=== PATIENT | male | born 1950 | race Caucasian/White ===

== ENCOUNTER 2021-12-06 16:11 | Inpatient (IN) ==
[2021-12-07] MEDS ORDERED: Dextrose Gel 15 GM/37.5 ML TUBE PO PRN ×2 (12:21)
[2021-12-07] MEDS ORDERED: *HR* Dextrose 50 % in Water (Syg) 50 ML SYRINGE IVP PRN (12:21)
[2021-12-07] MEDS ORDERED: D5% in Water 1,000 ML IVC PRN (12:21)
[2021-12-07] MEDS: cloNIDine HCL 0.1 MG TABLET PO SCH ×2 (15:23→20:50)
[2021-12-07] MEDS: Insulin LISPRO 300 UNITS/3 ML VIAL SUBQ SCH ×2 (16:52→20:57)
[2021-12-07] MEDS: carvediloL 25 MG TABLET PO SCH (16:53)
[2021-12-07] MEDS: ESOMEPRAZOLE 40 MG PO SCH (16:54)
[2021-12-07] MEDS: clonazePAM 0.5 MG TABLET PO SCH (20:49)
[2021-12-07] MEDS: lisinopriL 20 MG TABLET PO SCH (20:50)
[2021-12-07] MEDS: Insulin DETEMIR 100 UNIT/ML X5UNITS SUBQ SCH (20:53)
[2021-12-07] MEDS ORDERED: rOPINIRole 1 MG TABLET PO SCH (21:46)
[2021-12-08] MEDS: *HR* Enoxaparin 40 MG/0.4 ML SYRINGE SQ SCH (06:13)
[2021-12-08] MEDS: ESOMEPRAZOLE 40 MG PO SCH (07:49)
[2021-12-08] MEDS: Insulin LISPRO 300 UNITS/3 ML VIAL SUBQ SCH ×4 (07:49→19:44)
[2021-12-08] MEDS: cloNIDine HCL 0.1 MG TABLET PO SCH ×3 (07:50→19:47)
[2021-12-08] MEDS: clonazePAM 0.5 MG TABLET PO SCH ×2 (07:50→19:47)
[2021-12-08] MEDS: lisinopriL 20 MG TABLET PO SCH ×2 (07:50→19:47)
[2021-12-08] MEDS: carvediloL 25 MG TABLET PO SCH ×2 (07:50→16:02)
[2021-12-08 08:17] LABS: Basophils % 0.5 %; Eosinophils # 0.1 K/mcL (0.0-0.6); Eosinophils % 0.8 %; Hematocrit 43.1 % (37.5-50.1); Hemoglobin 14.2 g/dL (12.9-16.9); Immature Granulocytes % 0.9 % (0-4); Lymphocytes # 1.6 K/mcL (0.6-4.6); Lymphocytes % 19.9 %; Mean Corpuscular HGB Conc 32.9 g/dL (31.6-35.5); Mean Corpuscular Hemoglobin 28.8 pg (28.0-33.3); Mean Corpuscular Volume 87.4 fL (83.0-100.0); Mean Platelet Volume 10.5 fL (9.4-12.4); Monocytes # 0.6 K/mcL (0.0-1.3); Monocytes % 7.3 %; Neutrophils # 5.5 K/mcL (1.6-8.9); Platelet Count 226 K/mcL (140-400); Red Blood Count 4.93 M/mcL (4.19-5.50); Red Cell Distribution Width 13.8 % (11.5-14.5); Segmented Neutrophils % 70.6 %; White Blood Count 7.8 K/mcL (4.3-11.1)
[2021-12-08 08:29] LABS: BUN/Creatinine Ratio 19 (6-26); Blood Urea Nitrogen 22 mg/dL (8-23); Calcium 8.4 mg/dL (8.6-10.3); Carbon Dioxide 30 mEq/L (23-29); Chloride 101 mEq/L (98-107); Glucose 228 mg/dL (70-105); Osmolality,Calculated 295 (280-300); Potassium 3.5 mEq/L (3.5-5.1); Sodium 137 mEq/L (136-145); eGFR For African Americans > 60 (> 60); eGFR For Non-African Americans > 60 (> 60)
[2021-12-08] MEDS: Aspirin 81 MG TAB.CHEW PO SCH (08:57)
[2021-12-08] MEDS: Insulin DETEMIR 100 UNIT/ML X5UNITS SUBQ SCH (19:44)
[2021-12-09] MEDS: *HR* Enoxaparin 40 MG/0.4 ML SYRINGE SQ SCH (08:28)
[2021-12-09] MEDS: carvediloL 25 MG TABLET PO SCH ×2 (08:28→16:01)
[2021-12-09] MEDS: lisinopriL 20 MG TABLET PO SCH ×2 (08:28→21:40)
[2021-12-09] MEDS: clonazePAM 0.5 MG TABLET PO SCH ×2 (08:29→21:39)
[2021-12-09] MEDS: Insulin LISPRO 300 UNITS/3 ML VIAL SUBQ SCH ×4 (08:29→21:37)
[2021-12-09] MEDS: Aspirin 81 MG TAB.CHEW PO SCH (08:29)
[2021-12-09] MEDS: cloNIDine HCL 0.1 MG TABLET PO SCH ×3 (08:29→21:39)
[2021-12-09] MEDS: ESOMEPRAZOLE 40 MG PO SCH (08:35)
[2021-12-09] MEDS: Insulin DETEMIR 100 UNIT/ML X5UNITS SUBQ SCH (21:36)
[2021-12-10] MEDS: Acetaminophen 325 MG TABLET PO PRN (06:44)
[2021-12-10] MEDS: cloNIDine HCL 0.1 MG TABLET PO SCH ×3 (08:26→20:46)
[2021-12-10] MEDS: Insulin LISPRO 300 UNITS/3 ML VIAL SUBQ SCH ×4 (08:26→20:47)
[2021-12-10] MEDS: lisinopriL 20 MG TABLET PO SCH ×2 (08:27→20:46)
[2021-12-10] MEDS: *HR* Enoxaparin 40 MG/0.4 ML SYRINGE SQ SCH (08:27)
[2021-12-10] MEDS: clonazePAM 0.5 MG TABLET PO SCH ×2 (08:27→20:46)
[2021-12-10] MEDS: Aspirin 81 MG TAB.CHEW PO SCH (08:27)
[2021-12-10] MEDS: carvediloL 25 MG TABLET PO SCH ×2 (08:27→15:45)
[2021-12-10] MEDS: ESOMEPRAZOLE 40 MG PO SCH (08:27)
[2021-12-10] MEDS: Insulin DETEMIR 100 UNIT/ML X5UNITS SUBQ SCH (20:46)
[2021-12-11] MEDS: *HR* Enoxaparin 40 MG/0.4 ML SYRINGE SQ SCH (05:42)
[2021-12-11] MEDS: lisinopriL 20 MG TABLET PO SCH ×2 (08:09→20:33)
[2021-12-11] MEDS: ESOMEPRAZOLE 40 MG PO SCH (08:09)
[2021-12-11] MEDS: Aspirin 81 MG TAB.CHEW PO SCH (08:09)
[2021-12-11] MEDS: cloNIDine HCL 0.1 MG TABLET PO SCH ×3 (08:09→20:34)
[2021-12-11] MEDS: clonazePAM 0.5 MG TABLET PO SCH ×2 (08:10→20:34)
[2021-12-11] MEDS: carvediloL 25 MG TABLET PO SCH ×2 (08:10→16:49)
[2021-12-11] MEDS: Insulin LISPRO 300 UNITS/3 ML VIAL SUBQ SCH ×4 (08:11→20:39)
[2021-12-11] MEDS: amLODIPine 5 MG TABLET PO SCH ×2 (08:42→20:34)
[2021-12-11] MEDS: Acetaminophen 325 MG TABLET PO PRN (09:34)
[2021-12-11] MEDS: Insulin DETEMIR 100 UNIT/ML X5UNITS SUBQ SCH (20:35)
[2021-12-12] MEDS: *HR* Enoxaparin 40 MG/0.4 ML SYRINGE SQ SCH (09:22)
[2021-12-12] MEDS: Aspirin 81 MG TAB.CHEW PO SCH (09:22)
[2021-12-12] MEDS: ESOMEPRAZOLE 40 MG PO SCH (09:22)
[2021-12-12] MEDS: carvediloL 25 MG TABLET PO SCH ×2 (09:22→18:02)
[2021-12-12] MEDS: cloNIDine HCL 0.1 MG TABLET PO SCH ×3 (09:22→20:41)
[2021-12-12] MEDS: lisinopriL 20 MG TABLET PO SCH ×2 (09:22→20:40)
[2021-12-12] MEDS: clonazePAM 0.5 MG TABLET PO SCH ×2 (09:23→20:41)
[2021-12-12] MEDS: Insulin LISPRO 300 UNITS/3 ML VIAL SUBQ SCH ×4 (09:23→20:35)
[2021-12-12] MEDS: Insulin DETEMIR 100 UNIT/ML X5UNITS SUBQ SCH (20:34)
[2021-12-12] MEDS: amLODIPine 5 MG TABLET PO SCH (20:40)
[2021-12-13 07:47] LABS: Hematocrit 39.1 % (37.5-50.1); Hemoglobin 13.1 g/dL (12.9-16.9); Mean Corpuscular HGB Conc 33.5 g/dL (31.6-35.5); Mean Corpuscular Volume 86.7 fL (83.0-100.0); Mean Platelet Volume 10.9 fL (9.4-12.4); Platelet Count 203 K/mcL (140-400); Red Blood Count 4.51 M/mcL (4.19-5.50); Red Cell Distribution Width 13.2 % (11.5-14.5); White Blood Count 6.3 K/mcL (4.3-11.1)
[2021-12-13] MEDS: Aspirin 81 MG TAB.CHEW PO SCH (07:59)
[2021-12-13] MEDS: lisinopriL 20 MG TABLET PO SCH ×2 (07:59→20:53)
[2021-12-13] MEDS: cloNIDine HCL 0.1 MG TABLET PO SCH ×3 (07:59→20:54)
[2021-12-13] MEDS: clonazePAM 0.5 MG TABLET PO SCH ×2 (08:00→20:53)
[2021-12-13] MEDS: carvediloL 25 MG TABLET PO SCH ×2 (08:00→16:33)
[2021-12-13] MEDS: ESOMEPRAZOLE 40 MG PO SCH (08:01)
[2021-12-13] MEDS: *HR* Enoxaparin 40 MG/0.4 ML SYRINGE SQ SCH (08:06)
[2021-12-13] MEDS: Insulin LISPRO 300 UNITS/3 ML VIAL SUBQ SCH ×4 (08:07→20:55)
[2021-12-13 08:12] LABS: BUN/Creatinine Ratio 16 (6-26); Blood Urea Nitrogen 13 mg/dL (8-23); Calcium 8.2 mg/dL (8.6-10.3); Carbon Dioxide 31 mEq/L (23-29); Chloride 101 mEq/L (98-107); Glucose 182 mg/dL (70-105); Osmolality,Calculated 291 (280-300); Potassium 3.2 mEq/L (3.5-5.1); Sodium 138 mEq/L (136-145); eGFR For African Americans > 60 (> 60); eGFR For Non-African Americans > 60 (> 60)
[2021-12-13] MEDS: Acetaminophen 325 MG TABLET PO PRN (11:04)
[2021-12-13] MEDS: amLODIPine 5 MG TABLET PO SCH (20:53)
[2021-12-13] MEDS: Insulin DETEMIR 100 UNIT/ML X5UNITS SUBQ SCH (20:55)
[2021-12-14] MEDS: *HR* Enoxaparin 40 MG/0.4 ML SYRINGE SQ SCH (05:49)
[2021-12-14] MEDS: cloNIDine HCL 0.1 MG TABLET PO SCH ×3 (08:09→22:11)
[2021-12-14] MEDS: carvediloL 25 MG TABLET PO SCH ×2 (08:09→16:18)
[2021-12-14] MEDS: lisinopriL 20 MG TABLET PO SCH ×2 (08:09→22:11)
[2021-12-14] MEDS: clonazePAM 0.5 MG TABLET PO SCH ×2 (08:09→22:12)
[2021-12-14] MEDS: Aspirin 81 MG TAB.CHEW PO SCH (08:09)
[2021-12-14] MEDS: ESOMEPRAZOLE 40 MG PO SCH (08:10)
[2021-12-14] MEDS: Insulin LISPRO 300 UNITS/3 ML VIAL SUBQ SCH ×4 (08:22→22:12)
[2021-12-14] MEDS: Insulin DETEMIR 100 UNIT/ML X5UNITS SUBQ SCH (22:10)
[2021-12-14] MEDS: amLODIPine 5 MG TABLET PO SCH (22:11)
[2021-12-15] MEDS: hydrALAZINE 25 MG TABLET PO PRN ×2 (05:32→12:38)
[2021-12-15] MEDS: *HR* Enoxaparin 40 MG/0.4 ML SYRINGE SQ SCH (05:32)
[2021-12-15] MEDS: lisinopriL 20 MG TABLET PO SCH ×2 (08:09→19:26)
[2021-12-15] MEDS: cloNIDine HCL 0.1 MG TABLET PO SCH ×3 (08:09→19:26)
[2021-12-15] MEDS: ESOMEPRAZOLE 40 MG PO SCH (08:11)
[2021-12-15] MEDS: clonazePAM 0.5 MG TABLET PO SCH ×2 (08:11→22:24)
[2021-12-15] MEDS: carvediloL 25 MG TABLET PO SCH ×2 (08:11→16:29)
[2021-12-15] MEDS: Aspirin 81 MG TAB.CHEW PO SCH (08:11)
[2021-12-15] MEDS: Insulin LISPRO 300 UNITS/3 ML VIAL SUBQ SCH ×4 (08:13→20:54)
[2021-12-15] MEDS: amLODIPine 5 MG TABLET PO SCH (19:25)
[2021-12-15] MEDS: hydrALAZINE 25 MG TABLET PO SCH (20:53)
[2021-12-15] MEDS: Insulin DETEMIR 100 UNIT/ML X5UNITS SUBQ SCH (20:54)
[2021-12-16] MEDS: hydrALAZINE 25 MG TABLET PO PRN (04:00)
[2021-12-16] MEDS: lisinopriL 20 MG TABLET PO SCH ×2 (07:54→20:15)
[2021-12-16] MEDS: cloNIDine HCL 0.1 MG TABLET PO SCH ×3 (07:54→20:15)
[2021-12-16] MEDS: *HR* Enoxaparin 40 MG/0.4 ML SYRINGE SQ SCH (07:54)
[2021-12-16] MEDS: Aspirin 81 MG TAB.CHEW PO SCH (07:54)
[2021-12-16] MEDS: ESOMEPRAZOLE 40 MG PO SCH (07:54)
[2021-12-16] MEDS: hydrALAZINE 25 MG TABLET PO SCH ×3 (07:54→20:15)
[2021-12-16] MEDS: Insulin LISPRO 300 UNITS/3 ML VIAL SUBQ SCH ×4 (07:55→20:13)
[2021-12-16] MEDS: carvediloL 25 MG TABLET PO SCH ×2 (07:55→16:23)
[2021-12-16] MEDS: clonazePAM 0.5 MG TABLET PO SCH ×2 (08:00→22:21)
[2021-12-16] MEDS: Insulin DETEMIR 100 UNIT/ML X5UNITS SUBQ SCH (20:14)
[2021-12-16] MEDS: amLODIPine 5 MG TABLET PO SCH (20:15)
[2021-12-17] MEDS: hydrALAZINE 25 MG TABLET PO PRN (04:45)
[2021-12-17] MEDS: Insulin LISPRO 300 UNITS/3 ML VIAL SUBQ SCH ×4 (08:19→19:56)
[2021-12-17] MEDS: ESOMEPRAZOLE 40 MG PO SCH (08:19)
[2021-12-17] MEDS: *HR* Enoxaparin 40 MG/0.4 ML SYRINGE SQ SCH (08:19)
[2021-12-17] MEDS: cloNIDine HCL 0.1 MG TABLET PO SCH ×3 (08:20→19:55)
[2021-12-17] MEDS: lisinopriL 20 MG TABLET PO SCH ×2 (08:21→19:55)
[2021-12-17] MEDS: carvediloL 25 MG TABLET PO SCH ×2 (08:21→17:49)
[2021-12-17] MEDS: Aspirin 81 MG TAB.CHEW PO SCH (08:21)
[2021-12-17] MEDS: hydrALAZINE 25 MG TABLET PO SCH ×3 (08:22→19:55)
[2021-12-17] MEDS: clonazePAM 0.5 MG TABLET PO SCH ×3 (08:23→22:44)
[2021-12-17] MEDS: Acetaminophen 325 MG TABLET PO PRN (14:22)
[2021-12-17] MEDS: Insulin DETEMIR 100 UNIT/ML X5UNITS SUBQ SCH (19:55)
[2021-12-17] MEDS: amLODIPine 5 MG TABLET PO SCH (19:55)
[2021-12-17] MEDS: Melatonin 3 MG TABLET PO PRN (22:44)
[2021-12-18 01:32] LABS: Urine Collection Volume NOT PROVIDED mL
[2021-12-18] MEDS: Aspirin 81 MG TAB.CHEW PO SCH (08:07)
[2021-12-18] MEDS: cloNIDine HCL 0.1 MG TABLET PO SCH (08:08)
[2021-12-18] MEDS: hydrALAZINE 25 MG TABLET PO SCH ×3 (08:08→22:04)
[2021-12-18] MEDS: lisinopriL 20 MG TABLET PO SCH ×2 (08:09→22:05)
[2021-12-18] MEDS: carvediloL 25 MG TABLET PO SCH ×2 (08:09→16:57)
[2021-12-18] MEDS: ESOMEPRAZOLE 40 MG PO SCH (08:10)
[2021-12-18] MEDS: *HR* Enoxaparin 40 MG/0.4 ML SYRINGE SQ SCH (08:10)
[2021-12-18] MEDS: Insulin LISPRO 300 UNITS/3 ML VIAL SUBQ SCH ×4 (08:14→21:56)
[2021-12-18] MEDS: clonazePAM 0.5 MG TABLET PO SCH ×3 (09:50→22:09)
[2021-12-18] MEDS: Insulin DETEMIR 100 UNIT/ML X5UNITS SUBQ SCH (22:04)
[2021-12-18] MEDS: amLODIPine 5 MG TABLET PO SCH (22:04)
[2021-12-19] MEDS: Melatonin 3 MG TABLET PO PRN (03:03)
[2021-12-19] MEDS: *HR* Enoxaparin 40 MG/0.4 ML SYRINGE SQ SCH (05:51)
[2021-12-19] MEDS: ESOMEPRAZOLE 40 MG PO SCH (07:56)
[2021-12-19] MEDS: Aspirin 81 MG TAB.CHEW PO SCH (07:56)
[2021-12-19] MEDS: carvediloL 25 MG TABLET PO SCH ×2 (07:56→16:51)
[2021-12-19] MEDS: lisinopriL 20 MG TABLET PO SCH ×2 (07:57→23:01)
[2021-12-19] MEDS: cloNIDine HCL 0.1 MG TABLET PO PRN ×2 (07:57→15:41)
[2021-12-19] MEDS: hydrALAZINE 25 MG TABLET PO SCH ×3 (07:57→23:02)
[2021-12-19] MEDS: Insulin LISPRO 300 UNITS/3 ML VIAL SUBQ SCH ×4 (07:58→22:59)
[2021-12-19] MEDS: clonazePAM 0.5 MG TABLET PO SCH ×3 (10:51→23:15)
[2021-12-19 11:53] LABS: Metanephrine, Plasma <0.10 nmol/L (0.00-0.49)
[2021-12-19] MEDS: amLODIPine 5 MG TABLET PO SCH (23:01)
[2021-12-19] MEDS: Insulin DETEMIR 100 UNIT/ML X5UNITS SUBQ SCH (23:02)
[2021-12-20] MEDS: *HR* Enoxaparin 40 MG/0.4 ML SYRINGE SQ SCH (06:55)
[2021-12-20 07:14] LABS: Hematocrit 39.1 % (37.5-50.1); Hemoglobin 13.2 g/dL (12.9-16.9); Mean Corpuscular HGB Conc 33.8 g/dL (31.6-35.5); Mean Corpuscular Hemoglobin 29.3 pg (28.0-33.3); Mean Corpuscular Volume 86.7 fL (83.0-100.0); Mean Platelet Volume 11.1 fL (9.4-12.4); Platelet Count 240 K/mcL (140-400); Red Blood Count 4.51 M/mcL (4.19-5.50); Red Cell Distribution Width 13.4 % (11.5-14.5); White Blood Count 8.1 K/mcL (4.3-11.1)
[2021-12-20 07:33] LABS: BUN/Creatinine Ratio 20 (6-26); Blood Urea Nitrogen 19 mg/dL (8-23); Calcium 8.6 mg/dL (8.6-10.3); Carbon Dioxide 28 mEq/L (23-29); Chloride 102 mEq/L (98-107); Glucose 168 mg/dL (70-105); Osmolality,Calculated 292 (280-300); Potassium 3.4 mEq/L (3.5-5.1); Sodium 138 mEq/L (136-145); eGFR For African Americans > 60 (> 60); eGFR For Non-African Americans > 60 (> 60)
[2021-12-20] MEDS: lisinopriL 20 MG TABLET PO SCH ×2 (07:56→21:07)
[2021-12-20] MEDS: carvediloL 25 MG TABLET PO SCH ×2 (07:56→16:39)
[2021-12-20] MEDS: ESOMEPRAZOLE 40 MG PO SCH (07:57)
[2021-12-20] MEDS: Aspirin 81 MG TAB.CHEW PO SCH (07:57)
[2021-12-20] MEDS: hydrALAZINE 25 MG TABLET PO SCH ×3 (07:57→21:07)
[2021-12-20] MEDS: Insulin LISPRO 300 UNITS/3 ML VIAL SUBQ SCH ×4 (07:58→21:04)
[2021-12-20] MEDS ORDERED: cloNIDine HCL 0.1 MG TABLET PO PRN (09:50)
[2021-12-20] MEDS: clonazePAM 0.5 MG TABLET PO SCH ×3 (10:38→22:55)
[2021-12-20] MEDS: CloNIDine Patch 0.1 MG PATCH (WEEKLY) TD SCH (16:25)
[2021-12-20] MEDS: Insulin DETEMIR 100 UNIT/ML X5UNITS SUBQ SCH (21:05)
[2021-12-20] MEDS: amLODIPine 5 MG TABLET PO SCH (21:06)
[2021-12-20] MEDS: Melatonin 3 MG TABLET PO PRN (22:55)
[2021-12-21] MEDS: *HR* Enoxaparin 40 MG/0.4 ML SYRINGE SQ SCH (08:02)
[2021-12-21] MEDS: hydrALAZINE 25 MG TABLET PO SCH ×3 (08:05→20:03)
[2021-12-21] MEDS: Aspirin 81 MG TAB.CHEW PO SCH (08:06)
[2021-12-21] MEDS: lisinopriL 20 MG TABLET PO SCH ×2 (08:07→20:04)
[2021-12-21] MEDS: carvediloL 25 MG TABLET PO SCH ×2 (08:07→17:12)
[2021-12-21] MEDS: Insulin LISPRO 300 UNITS/3 ML VIAL SUBQ SCH ×4 (08:08→20:04)
[2021-12-21] MEDS: ESOMEPRAZOLE 40 MG PO SCH (08:15)
[2021-12-21] MEDS: clonazePAM 0.5 MG TABLET PO SCH ×2 (15:42→23:06)
[2021-12-21] MEDS: Insulin DETEMIR 100 UNIT/ML X5UNITS SUBQ SCH (20:03)
[2021-12-21] MEDS: amLODIPine 5 MG TABLET PO SCH (20:04)
[2021-12-21] MEDS: Melatonin 3 MG TABLET PO PRN (23:06)
[2021-12-22] MEDS: *HR* Enoxaparin 40 MG/0.4 ML SYRINGE SQ SCH (06:42)
[2021-12-22] MEDS: Insulin LISPRO 300 UNITS/3 ML VIAL SUBQ SCH ×4 (08:31→21:26)
[2021-12-22] MEDS: ESOMEPRAZOLE 40 MG PO SCH (08:32)
[2021-12-22] MEDS: Aspirin 81 MG TAB.CHEW PO SCH (08:32)
[2021-12-22] MEDS: lisinopriL 20 MG TABLET PO SCH ×2 (08:32→21:26)
[2021-12-22] MEDS: hydrALAZINE 25 MG TABLET PO SCH ×3 (08:33→21:26)
[2021-12-22] MEDS: carvediloL 25 MG TABLET PO SCH ×2 (08:33→17:29)
[2021-12-22] MEDS: clonazePAM 0.5 MG TABLET PO SCH ×2 (15:09→23:06)
[2021-12-22] MEDS: amLODIPine 5 MG TABLET PO SCH (21:27)
[2021-12-22] MEDS: Insulin DETEMIR 100 UNIT/ML X5UNITS SUBQ SCH (21:27)
[2021-12-22] MEDS: Melatonin 3 MG TABLET PO PRN (23:06)
[2021-12-23] MEDS: *HR* Enoxaparin 40 MG/0.4 ML SYRINGE SQ SCH (06:10)
[2021-12-23] MEDS: lisinopriL 20 MG TABLET PO SCH ×2 (08:53→20:53)
[2021-12-23] MEDS: carvediloL 25 MG TABLET PO SCH ×2 (08:53→16:27)
[2021-12-23] MEDS: Aspirin 81 MG TAB.CHEW PO SCH (08:54)
[2021-12-23] MEDS: hydrALAZINE 25 MG TABLET PO SCH ×3 (08:54→20:52)
[2021-12-23] MEDS: Insulin LISPRO 300 UNITS/3 ML VIAL SUBQ SCH ×4 (08:54→20:54)
[2021-12-23] MEDS: ESOMEPRAZOLE 40 MG PO SCH (08:56)
[2021-12-23] MEDS: clonazePAM 0.5 MG TABLET PO SCH ×2 (16:29→23:28)
[2021-12-23] MEDS: amLODIPine 5 MG TABLET PO SCH (20:52)
[2021-12-23] MEDS: Insulin DETEMIR 100 UNIT/ML X5UNITS SUBQ SCH (21:00)
[2021-12-23] MEDS: Melatonin 3 MG TABLET PO PRN (23:27)
[2021-12-24] MEDS: *HR* Enoxaparin 40 MG/0.4 ML SYRINGE SQ SCH (06:10)
[2021-12-24] MEDS: Aspirin 81 MG TAB.CHEW PO SCH (07:52)
[2021-12-24] MEDS: hydrALAZINE 25 MG TABLET PO SCH ×3 (07:52→22:10)
[2021-12-24] MEDS: ESOMEPRAZOLE 40 MG PO SCH (07:52)
[2021-12-24] MEDS: carvediloL 25 MG TABLET PO SCH ×2 (07:52→18:15)
[2021-12-24] MEDS: lisinopriL 20 MG TABLET PO SCH ×2 (07:53→22:11)
[2021-12-24] MEDS: Insulin LISPRO 300 UNITS/3 ML VIAL SUBQ SCH ×4 (07:53→22:09)
[2021-12-24] MEDS: clonazePAM 0.5 MG TABLET PO SCH ×2 (18:15→22:14)
[2021-12-24] MEDS: Melatonin 3 MG TABLET PO PRN (22:11)
[2021-12-24] MEDS: amLODIPine 5 MG TABLET PO SCH (22:11)
[2021-12-24] MEDS: Insulin DETEMIR 100 UNIT/ML X5UNITS SUBQ SCH (22:21)
[2021-12-25] MEDS: *HR* Enoxaparin 40 MG/0.4 ML SYRINGE SQ SCH (06:42)
[2021-12-25] MEDS: carvediloL 25 MG TABLET PO SCH ×2 (08:21→15:31)
[2021-12-25] MEDS: hydrALAZINE 25 MG TABLET PO SCH ×3 (08:21→22:33)
[2021-12-25] MEDS: Aspirin 81 MG TAB.CHEW PO SCH (08:21)
[2021-12-25] MEDS: lisinopriL 20 MG TABLET PO SCH ×2 (08:21→22:32)
[2021-12-25] MEDS: Insulin LISPRO 300 UNITS/3 ML VIAL SUBQ SCH ×4 (08:22→22:25)
[2021-12-25] MEDS: ESOMEPRAZOLE 40 MG PO SCH (08:23)
[2021-12-25] MEDS: clonazePAM 0.5 MG TABLET PO SCH ×2 (15:31→22:31)
[2021-12-25] MEDS: Megestrol Acetate 400 MG/10 ML UDC PO SCH (15:33)
[2021-12-25] MEDS: Insulin DETEMIR 100 UNIT/ML X5UNITS SUBQ SCH (22:25)
[2021-12-25] MEDS: Melatonin 3 MG TABLET PO PRN (22:34)
[2021-12-25] MEDS: amLODIPine 5 MG TABLET PO SCH (22:34)
[2021-12-26] MEDS: *HR* Enoxaparin 40 MG/0.4 ML SYRINGE SQ SCH (06:37)
[2021-12-26] MEDS: hydrALAZINE 25 MG TABLET PO SCH ×3 (08:02→21:23)
[2021-12-26] MEDS: lisinopriL 20 MG TABLET PO SCH ×2 (08:02→21:23)
[2021-12-26] MEDS: ESOMEPRAZOLE 40 MG PO SCH (08:03)
[2021-12-26] MEDS: carvediloL 25 MG TABLET PO SCH ×2 (08:03→15:42)
[2021-12-26] MEDS: Megestrol Acetate 400 MG/10 ML UDC PO SCH (08:03)
[2021-12-26] MEDS: Aspirin 81 MG TAB.CHEW PO SCH (08:03)
[2021-12-26] MEDS: Insulin LISPRO 300 UNITS/3 ML VIAL SUBQ SCH ×4 (08:05→21:00)
[2021-12-26] MEDS: clonazePAM 0.5 MG TABLET PO SCH ×2 (15:44→23:01)
[2021-12-26] MEDS: Insulin DETEMIR 100 UNIT/ML X5UNITS SUBQ SCH (21:01)
[2021-12-26] MEDS: amLODIPine 5 MG TABLET PO SCH (21:23)
[2021-12-26] MEDS: Melatonin 3 MG TABLET PO PRN (23:01)
[2021-12-27] MEDS: *HR* Enoxaparin 40 MG/0.4 ML SYRINGE SQ SCH (06:13)
[2021-12-27] MEDS: Insulin LISPRO 300 UNITS/3 ML VIAL SUBQ SCH ×4 (08:05→20:01)
[2021-12-27] MEDS: Aspirin 81 MG TAB.CHEW PO SCH (10:38)
[2021-12-27] MEDS: lisinopriL 20 MG TABLET PO SCH ×2 (10:38→22:59)
[2021-12-27] MEDS: hydrALAZINE 25 MG TABLET PO SCH ×3 (10:38→22:59)
[2021-12-27] MEDS: ESOMEPRAZOLE 40 MG PO SCH (10:38)
[2021-12-27] MEDS: Megestrol Acetate 400 MG/10 ML UDC PO SCH (10:39)
[2021-12-27] MEDS: carvediloL 25 MG TABLET PO SCH ×2 (10:39→17:06)
[2021-12-27] MEDS: CloNIDine Patch 0.1 MG PATCH (WEEKLY) TD SCH (17:12)
[2021-12-27] MEDS: clonazePAM 0.5 MG TABLET PO SCH ×2 (17:12→22:59)
[2021-12-27] MEDS: Insulin DETEMIR 100 UNIT/ML X5UNITS SUBQ SCH (20:01)
[2021-12-27] MEDS: amLODIPine 5 MG TABLET PO SCH (22:59)
[2021-12-27] MEDS: Melatonin 3 MG TABLET PO PRN (23:01)
[2021-12-28] MEDS: *HR* Enoxaparin 40 MG/0.4 ML SYRINGE SQ SCH (05:02)
[2021-12-28] MEDS: Insulin LISPRO 300 UNITS/3 ML VIAL SUBQ SCH ×4 (07:23→21:17)
[2021-12-28] MEDS: hydrALAZINE 25 MG TABLET PO SCH ×3 (09:02→21:16)
[2021-12-28] MEDS: Megestrol Acetate 400 MG/10 ML UDC PO SCH (09:02)
[2021-12-28] MEDS: carvediloL 25 MG TABLET PO SCH ×2 (09:02→16:12)
[2021-12-28] MEDS: Aspirin 81 MG TAB.CHEW PO SCH (09:02)
[2021-12-28] MEDS: lisinopriL 20 MG TABLET PO SCH ×2 (09:02→21:15)
[2021-12-28] MEDS: ESOMEPRAZOLE 40 MG PO SCH (09:02)
[2021-12-28] MEDS: clonazePAM 0.5 MG TABLET PO SCH ×2 (16:15→23:03)
[2021-12-28] MEDS: Insulin DETEMIR 100 UNIT/ML X5UNITS SUBQ SCH (21:15)
[2021-12-28] MEDS: amLODIPine 5 MG TABLET PO SCH (21:16)
[2021-12-28] MEDS: Melatonin 3 MG TABLET PO PRN (23:03)
[2021-12-29] MEDS: Insulin LISPRO 300 UNITS/3 ML VIAL SUBQ SCH ×4 (08:37→20:37)
[2021-12-29] MEDS: *HR* Enoxaparin 40 MG/0.4 ML SYRINGE SQ SCH (08:59)
[2021-12-29] MEDS: ESOMEPRAZOLE 40 MG PO SCH (09:00)
[2021-12-29] MEDS: lisinopriL 20 MG TABLET PO SCH ×2 (09:01→20:31)
[2021-12-29] MEDS: Aspirin 81 MG TAB.CHEW PO SCH (09:01)
[2021-12-29] MEDS: hydrALAZINE 25 MG TABLET PO SCH ×3 (09:01→20:30)
[2021-12-29] MEDS: carvediloL 25 MG TABLET PO SCH ×2 (09:01→17:18)
[2021-12-29] MEDS: Megestrol Acetate 400 MG/10 ML UDC PO SCH (09:02)
[2021-12-29] MEDS: clonazePAM 0.5 MG TABLET PO SCH ×2 (14:56→22:59)
[2021-12-29] MEDS: amLODIPine 5 MG TABLET PO SCH (20:30)
[2021-12-29] MEDS: Insulin DETEMIR 100 UNIT/ML X5UNITS SUBQ SCH (20:37)
[2021-12-29] MEDS: Melatonin 3 MG TABLET PO PRN (22:59)
[2021-12-30] MEDS: *HR* Enoxaparin 40 MG/0.4 ML SYRINGE SQ SCH (04:54)
[2021-12-30] MEDS: ESOMEPRAZOLE 40 MG PO SCH (04:55)
[2021-12-30] MEDS: carvediloL 25 MG TABLET PO SCH ×2 (07:47→16:46)
[2021-12-30] MEDS: Aspirin 81 MG TAB.CHEW PO SCH (07:47)
[2021-12-30] MEDS: lisinopriL 20 MG TABLET PO SCH ×2 (07:47→20:49)
[2021-12-30] MEDS: Megestrol Acetate 400 MG/10 ML UDC PO SCH (07:48)
[2021-12-30] MEDS: hydrALAZINE 25 MG TABLET PO SCH ×3 (07:48→20:48)
[2021-12-30] MEDS: Insulin LISPRO 300 UNITS/3 ML VIAL SUBQ SCH ×4 (07:50→20:51)
[2021-12-30] MEDS: clonazePAM 0.5 MG TABLET PO SCH ×2 (15:02→22:58)
[2021-12-30] MEDS: amLODIPine 5 MG TABLET PO SCH (20:48)
[2021-12-30] MEDS: Melatonin 3 MG TABLET PO PRN (20:50)
[2021-12-30] MEDS: Insulin DETEMIR 100 UNIT/ML X5UNITS SUBQ SCH (20:50)
[2021-12-31] MEDS: *HR* Enoxaparin 40 MG/0.4 ML SYRINGE SQ SCH (05:27)
[2021-12-31 07:12] LABS: Hematocrit 34.1 % (37.5-50.1); Hemoglobin 11.4 g/dL (12.9-16.9); Mean Corpuscular HGB Conc 33.4 g/dL (31.6-35.5); Mean Corpuscular Hemoglobin 28.9 pg (28.0-33.3); Mean Corpuscular Volume 86.3 fL (83.0-100.0); Mean Platelet Volume 10.6 fL (9.4-12.4); Platelet Count 182 K/mcL (140-400); Red Blood Count 3.95 M/mcL (4.19-5.50); Red Cell Distribution Width 13.1 % (11.5-14.5); White Blood Count 4.7 K/mcL (4.3-11.1)
[2021-12-31 07:29] LABS: BUN/Creatinine Ratio 20 (6-26); Blood Urea Nitrogen 17 mg/dL (8-23); Calcium 8.1 mg/dL (8.6-10.3); Carbon Dioxide 22 mEq/L (23-29); Chloride 104 mEq/L (98-107); Glucose 135 mg/dL (70-105); Osmolality,Calculated 282 (280-300); Potassium 3.6 mEq/L (3.5-5.1); Sodium 134 mEq/L (136-145); eGFR For African Americans > 60 (> 60); eGFR For Non-African Americans > 60 (> 60)
[2021-12-31] MEDS: hydrALAZINE 25 MG TABLET PO SCH ×3 (08:38→20:13)
[2021-12-31] MEDS: ESOMEPRAZOLE 40 MG PO SCH (08:38)
[2021-12-31] MEDS: lisinopriL 20 MG TABLET PO SCH ×2 (08:38→20:13)
[2021-12-31] MEDS: Aspirin 81 MG TAB.CHEW PO SCH (08:38)
[2021-12-31] MEDS: carvediloL 25 MG TABLET PO SCH ×2 (08:38→16:40)
[2021-12-31] MEDS: Megestrol Acetate 400 MG/10 ML UDC PO SCH (08:38)
[2021-12-31] MEDS: Insulin LISPRO 300 UNITS/3 ML VIAL SUBQ SCH ×4 (08:39→20:14)
[2021-12-31 14:17] LABS: Adenovirus F 40/41 PCR Not detected (Not detect); Astrovirus PCR Not detected (Not detect); C.difficile Toxin A/B Gene PCR Not detected (Not detect); Campylobacter by PCR Not detected (Not detect); Cryptosporidium by PCR Not detected (Not detect); Cyclospora cayetanensis PCR Not detected (Not detect); Entamoeba histolytica PCR Not detected (Not detect); Enteroaggregative E.coli(EAEC) Not detected (Not detect); Enteropathogenic E.coli(EPEC) DETECTED (Not detect); Enterotoxigenic E.coli (ETEC) Not detected (Not detect); Giardia lamblia PCR Not detected (Not detect); Norovirus GI/GII PCR Not detected (Not detect); Plesiomonas shigelloides PCR Not detected (Not detect); Rotavirus A PCR Not detected (Not detect); Salmonella PCR Not detected (Not detect); Sapovirus PCR Not detected (Not detect); Shig/EnteroinvasiveE coli EIEC Not detected (Not detect); Shigalike tox-prod E coli STEC Not detected (Not detect); Vibrio PCR Not detected (Not detect); Vibrio cholerae PCR Not detected (Not detect); Yersinia enterocolitica PCR Not detected (Not detect)
[2021-12-31] MEDS: clonazePAM 0.5 MG TABLET PO SCH ×2 (16:42→23:18)
[2021-12-31] MEDS: amLODIPine 5 MG TABLET PO SCH (20:12)
[2021-12-31] MEDS: Insulin DETEMIR 100 UNIT/ML X5UNITS SUBQ SCH (20:14)
[2021-12-31] MEDS: Melatonin 3 MG TABLET PO PRN (23:18)
[2022-01-01] MEDS: *HR* Enoxaparin 40 MG/0.4 ML SYRINGE SQ SCH (05:32)
[2022-01-01] MEDS: ESOMEPRAZOLE 40 MG PO SCH (05:32)
[2022-01-01] MEDS: Insulin LISPRO 300 UNITS/3 ML VIAL SUBQ SCH ×4 (07:54→21:10)
[2022-01-01] MEDS: carvediloL 25 MG TABLET PO SCH ×2 (07:56→17:06)
[2022-01-01] MEDS: hydrALAZINE 25 MG TABLET PO SCH ×3 (07:56→21:08)
[2022-01-01] MEDS: Aspirin 81 MG TAB.CHEW PO SCH (07:56)
[2022-01-01] MEDS: Megestrol Acetate 400 MG/10 ML UDC PO SCH (07:56)
[2022-01-01] MEDS: lisinopriL 20 MG TABLET PO SCH ×2 (07:56→21:09)
[2022-01-01] MEDS: clonazePAM 0.5 MG TABLET PO SCH ×2 (17:06→22:49)
[2022-01-01] MEDS: Insulin DETEMIR 100 UNIT/ML X5UNITS SUBQ SCH (21:07)
[2022-01-01] MEDS: amLODIPine 5 MG TABLET PO SCH (21:08)
[2022-01-01] MEDS: Melatonin 3 MG TABLET PO PRN (22:49)
[2022-01-02] MEDS: *HR* Enoxaparin 40 MG/0.4 ML SYRINGE SQ SCH (06:22)
[2022-01-02] MEDS: Megestrol Acetate 400 MG/10 ML UDC PO SCH (08:57)
[2022-01-02] MEDS: lisinopriL 20 MG TABLET PO SCH ×2 (08:58→21:55)
[2022-01-02] MEDS: Aspirin 81 MG TAB.CHEW PO SCH (08:58)
[2022-01-02] MEDS: Insulin LISPRO 300 UNITS/3 ML VIAL SUBQ SCH ×4 (08:58→21:56)
[2022-01-02] MEDS: hydrALAZINE 25 MG TABLET PO SCH ×3 (08:58→21:55)
[2022-01-02] MEDS: ESOMEPRAZOLE 40 MG PO SCH (08:58)
[2022-01-02] MEDS: carvediloL 25 MG TABLET PO SCH ×2 (08:58→17:02)
[2022-01-02 16:54] LABS: Bilirubin,Urine Negative (Negative); Blood,Urine Negative (Negative); Clarity,Urine Clear (Clear); Color,Urine Yellow (Yellow); Glucose,Urine (UA) 500 mg/dL (Normal); Ketones,Urine Negative (Negative); Leukocyte Esterase,Urine Negative (Negative); Nitrite,Urine Negative (Negative); PH,Urine 5.5 pH Units (5.0-8.0); Protein,Urine 30 mg/dL (Neg-Trace); Urobilinogen,Urine Normal (Normal)
[2022-01-02 17:02] LABS: Hyaline Casts,Urine Few per lpf (None Seen); Mucus,Urine Few per lpf (None-Few); RBC,Urine 0-3 per hpf (0-3); WBC,Urine 0-3 per hpf (0-3)
[2022-01-02] MEDS: clonazePAM 0.5 MG TABLET PO SCH ×2 (17:02→21:56)
[2022-01-02] MEDS: amLODIPine 5 MG TABLET PO SCH (21:55)
[2022-01-02] MEDS: Insulin DETEMIR 100 UNIT/ML X5UNITS SUBQ SCH (21:56)
[2022-01-02] MEDS: Melatonin 3 MG TABLET PO PRN (21:56)
[2022-01-03] MEDS: *HR* Enoxaparin 40 MG/0.4 ML SYRINGE SQ SCH (06:21)
[2022-01-03] MEDS: ESOMEPRAZOLE 40 MG PO SCH (07:40)
[2022-01-03] MEDS: lisinopriL 20 MG TABLET PO SCH ×2 (07:40→21:56)
[2022-01-03] MEDS: Aspirin 81 MG TAB.CHEW PO SCH (07:40)
[2022-01-03] MEDS: carvediloL 25 MG TABLET PO SCH ×2 (07:40→16:53)
[2022-01-03] MEDS: hydrALAZINE 25 MG TABLET PO SCH ×3 (07:40→21:56)
[2022-01-03] MEDS: Insulin LISPRO 300 UNITS/3 ML VIAL SUBQ SCH ×4 (07:41→21:56)
[2022-01-03] MEDS: Megestrol Acetate 400 MG/10 ML UDC PO SCH (07:50)
[2022-01-03 07:58] LABS: Albumin 3.3 g/dL (3.5-5.7); BUN/Creatinine Ratio 21 (6-26); Blood Urea Nitrogen 16 mg/dL (8-23); Calcium 8.3 mg/dL (8.6-10.3); Carbon Dioxide 23 mEq/L (23-29); Chloride 111 mEq/L (98-107); Glucose 171 mg/dL (70-105); Magnesium 1.5 mg/dL (1.6-2.6); Osmolality,Calculated 281 (280-300); Phosphorous 3.3 mg/dL (2.7-4.5); Potassium 3.6 mEq/L (3.5-5.1); Sodium 133 mEq/L (136-145); eGFR For African Americans > 60 (> 60); eGFR For Non-African Americans > 60 (> 60)
[2022-01-03] MEDS: CloNIDine Patch 0.1 MG PATCH (WEEKLY) TD SCH (16:54)
[2022-01-03] MEDS: clonazePAM 0.5 MG TABLET PO SCH ×2 (17:00→23:20)
[2022-01-03] MEDS: Insulin DETEMIR 100 UNIT/ML X5UNITS SUBQ SCH (21:56)
[2022-01-03] MEDS: Melatonin 3 MG TABLET PO PRN (21:56)
[2022-01-03] MEDS: amLODIPine 5 MG TABLET PO SCH (21:56)
[2022-01-04] MEDS: Insulin LISPRO 300 UNITS/3 ML VIAL SUBQ SCH ×4 (07:31→21:13)
[2022-01-04] MEDS: *HR* Enoxaparin 40 MG/0.4 ML SYRINGE SQ SCH (08:31)
[2022-01-04] MEDS: hydrALAZINE 25 MG TABLET PO SCH ×3 (08:32→21:12)
[2022-01-04] MEDS: Aspirin 81 MG TAB.CHEW PO SCH (08:32)
[2022-01-04] MEDS: carvediloL 25 MG TABLET PO SCH ×2 (08:32→16:18)
[2022-01-04] MEDS: lisinopriL 20 MG TABLET PO SCH ×2 (08:32→21:12)
[2022-01-04] MEDS: ESOMEPRAZOLE 40 MG PO SCH (08:33)
[2022-01-04] MEDS: Megestrol Acetate 400 MG/10 ML UDC PO SCH (08:34)
[2022-01-04] MEDS: clonazePAM 0.5 MG TABLET PO SCH ×2 (16:18→22:21)
[2022-01-04] MEDS: amLODIPine 5 MG TABLET PO SCH (21:11)
[2022-01-04] MEDS: Melatonin 3 MG TABLET PO PRN (21:12)
[2022-01-04] MEDS: Insulin DETEMIR 100 UNIT/ML X5UNITS SUBQ SCH (21:12)
[2022-01-05] MEDS: ESOMEPRAZOLE 40 MG PO SCH (06:08)
[2022-01-05] MEDS: *HR* Enoxaparin 40 MG/0.4 ML SYRINGE SQ SCH (06:08)
[2022-01-05] MEDS: Insulin LISPRO 300 UNITS/3 ML VIAL SUBQ SCH ×4 (08:56→20:01)
[2022-01-05] MEDS: Aspirin 81 MG TAB.CHEW PO SCH (09:02)
[2022-01-05] MEDS: hydrALAZINE 25 MG TABLET PO SCH ×3 (09:02→19:54)
[2022-01-05] MEDS: lisinopriL 20 MG TABLET PO SCH ×2 (09:02→19:53)
[2022-01-05] MEDS: carvediloL 25 MG TABLET PO SCH ×2 (09:03→15:52)
[2022-01-05] MEDS: Megestrol Acetate 400 MG/10 ML UDC PO SCH (09:03)
[2022-01-05] MEDS: clonazePAM 0.5 MG TABLET PO SCH ×2 (15:54→23:03)
[2022-01-05] MEDS: amLODIPine 5 MG TABLET PO SCH (19:53)
[2022-01-05] MEDS: Insulin DETEMIR 100 UNIT/ML X5UNITS SUBQ SCH (19:54)
[2022-01-06] MEDS: ESOMEPRAZOLE 40 MG PO SCH (05:31)
[2022-01-06] MEDS: *HR* Enoxaparin 40 MG/0.4 ML SYRINGE SQ SCH (05:32)
[2022-01-06] MEDS: hydrALAZINE 25 MG TABLET PO SCH ×3 (09:10→22:49)
[2022-01-06] MEDS: carvediloL 25 MG TABLET PO SCH ×2 (09:10→16:52)
[2022-01-06] MEDS: Aspirin 81 MG TAB.CHEW PO SCH (09:11)
[2022-01-06] MEDS: lisinopriL 20 MG TABLET PO SCH ×2 (09:11→22:49)
[2022-01-06] MEDS: Insulin LISPRO 300 UNITS/3 ML VIAL SUBQ SCH ×4 (09:16→22:45)
[2022-01-06] MEDS: clonazePAM 0.5 MG TABLET PO SCH ×2 (15:07→22:50)
[2022-01-06] MEDS: amLODIPine 5 MG TABLET PO SCH (22:49)
[2022-01-06] MEDS: Melatonin 3 MG TABLET PO PRN (22:49)
[2022-01-06] MEDS: Insulin DETEMIR 100 UNIT/ML X5UNITS SUBQ SCH (22:50)
[2022-01-07] MEDS: *HR* Enoxaparin 40 MG/0.4 ML SYRINGE SQ SCH (08:14)
[2022-01-07] MEDS: Insulin LISPRO 300 UNITS/3 ML VIAL SUBQ SCH ×4 (08:15→21:29)
[2022-01-07] MEDS: Aspirin 81 MG TAB.CHEW PO SCH (08:16)
[2022-01-07] MEDS: ESOMEPRAZOLE 40 MG PO SCH (08:16)
[2022-01-07] MEDS: lisinopriL 20 MG TABLET PO SCH ×2 (08:16→21:27)
[2022-01-07] MEDS: carvediloL 25 MG TABLET PO SCH ×2 (08:16→16:30)
[2022-01-07] MEDS: hydrALAZINE 25 MG TABLET PO SCH ×3 (08:16→21:27)
[2022-01-07] MEDS: clonazePAM 0.5 MG TABLET PO SCH ×2 (15:10→23:01)
[2022-01-07 20:19] VITALS: RESP 18; TEMP 98.8
[2022-01-07] MEDS: Insulin DETEMIR 100 UNIT/ML X5UNITS SUBQ SCH (21:28)
[2022-01-07] MEDS: amLODIPine 5 MG TABLET PO SCH (21:28)
[2022-01-07] MEDS: Melatonin 3 MG TABLET PO PRN (21:28)
[2022-01-08] MEDS: *HR* Enoxaparin 40 MG/0.4 ML SYRINGE SQ SCH (06:26)
[2022-01-08 07:59] VITALS: BP 155/77; PULSE 62; O2SAT 95
[2022-01-08] MEDS: hydrALAZINE 25 MG TABLET PO SCH (09:16)
[2022-01-08] MEDS: lisinopriL 20 MG TABLET PO SCH (09:16)
[2022-01-08] MEDS: carvediloL 25 MG TABLET PO SCH (09:16)
[2022-01-08] MEDS: Aspirin 81 MG TAB.CHEW PO SCH (09:16)
[2022-01-08] MEDS: Insulin LISPRO 300 UNITS/3 ML VIAL SUBQ SCH (09:17)
[2022-01-08] MEDS: ESOMEPRAZOLE 40 MG PO SCH (09:17)
== END 2022-01-08 10:50 | disposition home or self-care (01) | DRG 65 ==
LOC: INPPIK 12-07 12:33
PROVIDERS: ADMIT Family Medicine; ATTEND Family Medicine